=== PATIENT | female | born 1960 | race Caucasian/White ===

== ENCOUNTER 2017-09-19 19:53 | Inpatient (IN) | payer OTHER ==
[~2017-09-19] VITALS: Ht 162.6 cm; Wt 77.1 kg
--- NOTE | ~2017-09-19 | HC ---
[facility] [place] [address] CONSULTATION Name: RAFI GOLDSTEIN Room #: 401-I [facility] IN M.R.#: [id number] Admission: 09/19/17 Attend Phys: Huey Samano MD Discharge: 09/22/17 Date of : 62 Report #: [id number] THIS REPORT FOR: //name// CC: Huey Mooremingaditi RAHMAN PCP DATE OF SERVICE: 09/20/2017 ATTENDING PHYSICIAN: Vitor Lambert MD CONSULTATION REQUESTED BY: Huey Samano MD REASON FOR CONSULTATION: Perirectal abscess. HISTORY OF PRESENT ILLNESS: A 56-year-old white woman admitted through the emergency room with a right perirectal abscess that is spontaneous to drain and she is receiving treatment with vancomycin and Zosyn. The patient recently diagnosed to be diabetic as well. Apparently became unwell a few days ago, visited with urgent care, prescribed Augmentin and Percocet, things got worse and she is evaluated in the emergency room with a draining right perirectal abscess. DRUG ALLERGIES: None listed. MEDICATIONS: The patient is on treatment with vancomycin 1 g IV every 12 hours, Zosyn 3.37 grams IV every 6 hours, p.r.n. fentanyl, glucose and glucagon on as needed basis, regular insulin per sliding scale, and p.r.n. acetaminophen. PAST MEDICAL HISTORY: Essentially negative. The patient some frequent urination up lately, but she was not aware that these were symptoms of possible diabetes. SOCIAL HISTORY: See H and P. FAMILY HISTORY: See H and P. REVIEW OF SYSTEMS: Some perirectal pain. No nausea. No vomiting. No fevers. PHYSICAL EXAMINATION: GENERAL: A well-developed, acutely ill person. VITAL SIGNS: Temperature maximum 101.4, pulse on admission 137, respirations 20, and BP 125/88. HEENMT: Within range. NECK: Supple. No thyromegaly. BREASTS: Deferred. [facility] [address] [place] [address] CONSULTATION Name: RAFI GOLDSTEIN Room #: 401-I [facility] IN [facility].#: [id number] Admission: 09/19/17 Attend Phys: Huey Samano MD Discharge: 09/22/17 Date of : 62 Report #: [id number] LUNGS: Clear. HEART: S1, S2. No gallop or murmur. ABDOMEN: Soft, no masses or megaly. RECTAL: Deferred. PERIRECTAL EXAMINATION: Revealed spontaneously draining large right perirectal abscess, some necrotic tissue, no foul odor surprisingly. NEUROLOGIC: Grossly within normal limit. EXTREMITIES: No clubbing or cyanosis. LABORATORY DATA: Sodium 132, potassium 3.1, CO2 of 30, glucose 627, magnesium 1.5 mg/dL. WBC 16,700, hemoglobin 13.3 g/dL, and platelets of 336,000. Hemoglobin A1c 13.1. Estimated average sugars 329. Urinalysis pending. MICROBIOLOGY DATA: Blood cultures obtained. No abscess culture sent yet. RADIOLOGY EVALUATION: CAT scan of abdomen and pelvis revealed right perirectal abscess measuring 2.3 x 2.4 x 3.2 cm. ASSESSMENT: 1. Right perirectal abscess, possibly polymicrobic in origin. 2. New onset diabetes mellitus. 3. Electrolyte imbalance. SUGGESTIONS: Recommend continue treatment with vancomycin and Zosyn. Add Flagyl 500 mg IV every 8 hours. Proceed with surgical intervention. Consider HBO treatments. Did discuss the patient's situation with general surgeon, Dr. Elio Price who has contacted wound care team. Dr. Samano, thank you for requesting my suggestions in the care of your patient. <ELECTRONICALLY SIGNED> By: Navid Winters MD 09/23/17 0822 1126 1808 Navid Winters MD /nt
--- NOTE | ~2017-09-19 | S ---
[facility] [address] SURGICAL PATH RPT PROCEDURE Name: FANI BATES Room #: 401-I DIS IN M.R.#: [id number] Admission: 09/19/17 Date of : 62 Discharge: 09/22/17 Report #: [id number] Path Case #: [id number] PATHOLOGY REPORT COLLECTION DATE: 09/20/2017 RECEIVED DATE: 09/21/2017 SUBMITTING PHYS: Dr. Elio Price, DO OTHER PHYS: Huey Samano M.D. Dr. Vitor Lambert SPECIMEN(S) RECEIVED: A.Chelsy-rectal mass B.Chelsy-rectal necrotic fat * * * * * * * * * * * * FINAL DIAGNOSIS: A. "Perirectal mass", excision: - Most consistent with leiomyoma showing focal degenerative changes and dystrophic calcifications. - Surrounding tissues with acute and chronic inflammation, necrosis, and granulation tissue. B. "Perirectal necrotic fat", debridement: - Fibroadipose connective tissue with acute and chronic inflammation, necrosis, granulation tissue, fat necrosis and focal fibroblastic proliferation. COMMENT: Properly controlled immunohistochemical stains are performed on specimen A. Block A4 SMA - tumor cells reactive S100 - tumor cells focally reactive CD117 - tumor cells essentially nonreactive CD34 - tumor cells nonreactive. The case is co-reviewed with Dr. Dot Pyle. Clinical correlation is recommended. (CLW:terri; 09/26/2017) PATHOLOGIST: Ximena Bocanegra M.D. REPORT ELECTRONICALLY SIGNED BY: Ximena Bocanegra M.D. DATE/TIME: 09/26/2017 17:01 * * * * * * * * * * * * GROSS PATHOLOGY: A. The specimen is received in formalin labeled "Fani Bates, perirectal mass". Received is a segment of pale cast, firm soft [facility] [address] [place] [address] SURGICAL PATH RPT PROCEDURE Name: FANI BATES Room #: 401-I DIS IN [facility].#: [id number] Admission: 09/19/17 Date of : 62 Discharge: 09/22/17 Report #: [id number] Path Case #: [id number] tissue measuring 3.1 x 2.7 x 2.7 cm in greatest dimensions. The surgical margin is inked. Sectioning reveals pale cast, homogenous cut surfaces throughout. Alternating sections are submitted in cassettes A1 through A6. B. The specimen is received in formalin labeled "Fani Bates, perirectal necrotic fat". Received are multiple segments of yellow-cast to dusky warren-cast lobulated tissue measuring 7.2 x 4.8 x 2.6 cm in aggregate dimensions. Sectioning reveals yellow-cast to bright yellow cut surfaces with a slight amount of fat necrosis present. The specimen is submitted representatively in cassette B1. (CAA; 09/21/2017) CLINICAL HISTORY: Perirectal abscess INITIAL CPT CODE(S): A; 22247, 14530, 86795, 02450, 85966 B; 14372 Professional services performed by [facility] at [facility] [address], [place] [address] Technical services performed by [facility] at [address] [place] [address], [address], [place] [address]. [facility] [address] [place] [address] PHONE: [phone] DIRECTOR: Nemesio Marina M.D. * * * END OF REPORT * * *
--- NOTE | ~2017-09-19 | HC ---
[facility] [place] [address] CONSULTATION Name: RAFI GOLDSTEIN Room #: 401-I [facility] IN ..#: [id number] Admission: 09/19/17 Attend Phys: Huey Samano MD Discharge: 09/22/17 Date of : 62 Report #: [id number] THIS REPORT FOR: //name// CC: Huey BOYCE DATE OF SERVICE: 09/21/2017 CHIEF COMPLAINT: Perirectal/perineal abscess. HISTORY OF PRESENT ILLNESS: This is a 56-year-old female patient who was admitted to the hospital through the Emergency Department. She had a 1-week history of progressive drainage and pain near her right buttocks. She was admitted to the hospital for possible perirectal abscess, she was taken to the operating room immediately and was noted to have a very large abscess cavity with likely a rectal fistula and has been admitted to the hospital for further evaluation and treatment. I have been asked to see her with regard to wound care. PAST MEDICAL HISTORY: Positive for likely history of preexisting diabetes, although this is a new diagnosis on her admission here. She has a history of the perirectal abscess today as well. ALLERGIES: None. SOCIAL HISTORY: Negative for alcohol or tobacco use. She is and accompanied by her . REVIEW OF SYSTEMS: CONSTITUTIONAL: The patient has some mild fever, chills. No recent weight loss. NEUROLOGIC: The patient denies focal weakness, numbness, or tingling. EYES: The patient denies visual changes, redness or drainage. ENT: The patient denies earache, nasal drainage, or sore throat. CARDIOVASCULAR: The patient denies chest pain, palpitations, or diaphoresis. PULMONARY: The patient denies cough or shortness of breath. GASTROINTESTINAL: The patient has had some mild nausea. GENITOURINARY: The patient has had perirectal pain and drainage. Other systems in a 14-point review of systems are negative. PHYSICAL EXAMINATION: VITAL SIGNS: At this time include pulse 109, respiratory rate 22, blood pressure 140/80, temperature 98.6. GENERAL: This is a slightly overweight female patient who appears to be in no distress. [facility] [address] [place] [address] CONSULTATION Name: RAFI GOLDSTEIN Room #: 401-I [facility] IN [facility].#: [id number] Admission: 09/19/17 Attend Phys: Huey Samano MD Discharge: 09/22/17 Date of : 62 Report #: [id number] NECK: Supple. LUNGS: Clear. HEART: Regular. ABDOMEN: Soft. Bowel sounds are present. GENITOURINARY: Perineal region demonstrates a very large perirectal abscess cavity to the right of the midline. There is a small what appears to be a small rectal fistula noted as well. Vaginal structures appear to be intact. I have evaluated the patient's wounds while she was under general anesthesia while undergoing secondary debridement today. LABORATORY DATA: Includes sodium 133, potassium 3.2, chloride 98, CO2 of 28, BUN 7, creatinine 0.7, glucose 263. Lactic acid is 1.8. White blood cell count 19.3, hemoglobin 10.2, hematocrit of 30.2, platelet count 269,000. Differential is a 60 segs, 15 bands, 17 lymphocytes. CLINICAL IMPRESSION: 1. Large ischiorectal abscess. 2. Xtyunkr-ki-jih. 3. Newly diagnosed diabetes mellitus. RECOMMENDATIONS: At this point in time, we will initiate dressing changes with quarter strength Dakin's moist gauze packing at least daily, possibly b.i.d. She may require significant pain medication associated with these dressing changes. There is some consideration that she may require transfer to facility with Colorectal Surgery and Gynecology that is not available here. I do appreciate being asked to see her in consultation. I have answered questions extensively with her and discussed this thoroughly with Dr. Price, her surgeon as well. <ELECTRONICALLY SIGNED> By: Jordon Sloan MD 09/24/17 0834 1726 2256 Jordon Sloan MD /nt
[2017-09-19 19:54] VITALS: BP 125/88
[2017-09-19 20:36] LABS: HEMATOCRIT 39.5 % (37.0-47.0); HEMOGLOBIN 13.3 gm/dL (12.0-15.0); MCHC 33.7 g/dL (28.0-37.0); PLATELET COUNT 336 thou/uL (150-400); RBC 4.94 mil/uL (4.20-5.00); RDW 13.7 % (10.5-14.5); WBC 16.7 thou/uL (4.0-11.0)
[2017-09-19 20:47] LABS: ANISOCYTOSIS 1+
[2017-09-19 21:02] LABS: CALCIUM 10.4 mg/dL (8.5-10.1); POTASSIUM 3.1 mmol/L (3.5-5.1)
[2017-09-20] VITALS (7 sets, daily range): BP systolic 131–181; BP diastolic 61–95
[2017-09-20 00:26] LABS: HEMATOCRIT 36.4 % (37.0-47.0); MCH 26.4 pg (26.0-34.0); MCHC 33.1 g/dL (28.0-37.0); MCV 79.8 fL (80.0-100.0); RBC 4.56 mil/uL (4.20-5.00); RDW 13.4 % (10.5-14.5); WBC 16.5 thou/uL (4.0-11.0)
[2017-09-20 00:37] LABS: CREATININE 0.8 mg/dL (0.6-1.0); MAGNESIUM 1.5 mg/dL (1.8-2.4)
[2017-09-20 00:40] LABS: POTASSIUM 2.9 mmol/L (3.5-5.1)
[2017-09-20 00:41] LABS: CALCIUM 8.4 mg/dL (8.5-10.1)
[2017-09-20 16:07] LABS: GLYCOHEMOGLOBIN (HGB A1C) 13.1 % (4.8-5.6)
[2017-09-21] VITALS (7 sets, daily range): BP systolic 131–166; BP diastolic 62–86
[2017-09-21 03:01] LABS: HEMATOCRIT 30.2 % (37.0-47.0); HEMOGLOBIN 10.2 gm/dL (12.0-15.0); MCH 27.1 pg (26.0-34.0); MCHC 33.7 g/dL (28.0-37.0); MCV 80.4 fL (80.0-100.0); PLATELET COUNT 269 thou/uL (150-400); RBC 3.76 mil/uL (4.20-5.00); RDW 13.7 % (10.5-14.5); WBC 19.3 thou/uL (4.0-11.0)
[2017-09-21 03:12] LABS: CALCIUM 7.4 mg/dL (8.5-10.1); CREATININE 0.7 mg/dL (0.6-1.0); POTASSIUM 3.2 mmol/L (3.5-5.1)
[2017-09-21 04:18] LABS: ABSOLUTE NEUTROPHILS 14.9 thou/uL (1.4-8.2); MYELOCYTES 1 %
[2017-09-22 04:25] VITALS: BP 135/49
[2017-09-22 05:46] LABS: HEMATOCRIT 31.3 % (37.0-47.0); HEMOGLOBIN 10.4 gm/dL (12.0-15.0); MCH 26.6 pg (26.0-34.0); MCHC 33.1 g/dL (28.0-37.0); MCV 80.4 fL (80.0-100.0); RBC 3.89 mil/uL (4.20-5.00); WBC 25.3 thou/uL (4.0-11.0)
[2017-09-22 05:54] LABS: PLATELET COUNT 364 thou/uL (150-400)
[2017-09-22 05:58] LABS: CALCIUM 8.3 mg/dL (8.5-10.1); CREATININE 0.6 mg/dL (0.6-1.0)
[2017-09-22 06:03] LABS: POTASSIUM 2.8 mmol/L (3.5-5.1)
[2017-09-22 08:00] VITALS: BP 139/70
[2017-09-22 08:36] LABS: METAMYELOCYTES 1 %; MYELOCYTES 2 %
[2017-09-22] MEDS ORDERED: DILAUDID1 MG/1 ML IV PUSH (16:29)
[2017-09-22] MEDS ORDERED: NOVOLOG100 UNIT/1 SUBQ (16:31)
[2017-09-22] MEDS ORDERED: ONDANSETRON HCL4 M1 IV PUSH (16:36)
== END 2017-09-22 16:59 | disposition short-term general hospital (02) | DRG 854 ==
LOC: ER 19:53 → 4N 22:27 → EROBS 22:27 → TBA 09-20 12:28 → 4N 09-20 18:48
PROVIDERS: Hospitalist; Nurse Practitioner Family; Physician Assistant; Surgery
PROC: 0KBM0ZZ Excision of Perineum Muscle, Open Approach (ICD-10-PCS; principal; 2017-09-20)
PROC: 0KBM0ZZ Excision of Perineum Muscle, Open Approach (ICD-10-PCS; 2017-09-21)
DX: A41.9 Sepsis, unspecified organism (principal); K61.3 Ischiorectal abscess; E11.65 Type 2 diabetes mellitus with hyperglycemia; E87.8 Other disorders of electrolyte and fluid balance, not elsewhere classified; N73.9 Female pelvic inflammatory disease, unspecified; E87.6 Hypokalemia; E83.42 Hypomagnesemia; E66.9 Obesity, unspecified; Z68.29 Body mass index [BMI] 29.0-29.9, adult
CPT/HCPCS: 10790; 50010; 50101; 50386; 50403; 53078; 53353; 53354; 62110; 62900; 70005

== ENCOUNTER → 2017-11-12 | Outpatient (CLI) | payer OTHER ==
[~2017-11-12] MED LIST: DILAUDID1 MG/1 ML IV PUSH; NOVOLOG100 UNIT/1 SUBQ; ONDANSETRON HCL4 M1 IV PUSH
== END ==
LOC: HYPER 10-26 11:02
DX: T81.89XA Other complications of procedures, not elsewhere classified, initial encounter (principal); E11.69 Type 2 diabetes mellitus with other specified complication; A41.89 Other specified sepsis; K61.0 Anal abscess; F06.4 Anxiety disorder due to known physiological condition; F43.21 Adjustment disorder with depressed mood; Z79.4 Long term (current) use of insulin; I10 Essential (primary) hypertension; F32.9 Major depressive disorder, single episode, unspecified; Y83.8 Other surgical procedures as the cause of abnormal reaction of the patient, or of later complication, without mention of misadventure at the time of the procedure

== ENCOUNTER 2020-03-12 09:37 | Inpatient (IN) | payer BC ==
[~2020-03-12] VITALS: Ht 160 cm; Wt 66.8 kg
--- NOTE | ~2020-03-12 | HC ---
[facility] [place] [address] CONSULTATION Name: RAFI GOLDSTEIN Room #: 456-P ADM IN M.R.#: [id number] Admission: 03/12/20 Attend Phys: Huey Samano MD Discharge: Date of : 62 Report #: [id number] THIS REPORT FOR: cc: Nathan Diggs MD,Erna Lucero MD, MD ~ CC: Huey Diggs DATE OF SERVICE: 03/17/2020 SUBJECTIVE: She is doing well. She had the surgery for resection of large transverse colon tumor. She does not have complaints of fever or chills. OBJECTIVE: VITAL SIGNS: Blood pressure is 109/51, heart rate is 98, temperature 37.0, respirations 19. NECK: Supple. LUNGS: Clear. EXTREMITIES: Lower extremities, no edema. MENTAL STATUS: Alert and oriented x 3. LABORATORY DATA: White count 11.1, hemoglobin 10.3 and platelets 252. CA 98.9. ASSESSMENT AND PLAN: 1. Colon cancer, metastatic to liver. I discussed prognosis and treatment options. I discussed options for chemotherapy. She will see Dr. Pinedo when she is discharged from the hospital for followup chemotherapy. 2. Anemia. Plan to check ferritin level, soluble transferrin receptor level. By: 1439 1501 Erna Hussein MD /nt
[2020-03-12 09:56] VITALS: BP 132/73
[2020-03-12 11:08] LABS: HEMATOCRIT 25.4 % (37.0-47.0); HEMOGLOBIN 7.8 gm/dL (12.0-15.0); MCH 18.6 pg (26.0-34.0); MCHC 30.6 g/dL (28.0-37.0); MCV 60.8 fL (80.0-100.0); PLATELET COUNT 739 thou/uL (150-400); RBC 4.18 mil/uL (4.20-5.00); RDW 17.9 % (10.5-14.5); WBC 21.5 thou/uL (4.0-11.0)
[2020-03-12 11:14] LABS: CALCIUM 10.1 mg/dL (8.5-10.1); CREATININE 1.4 mg/dL (0.6-1.0); POTASSIUM 4.3 mmol/L (3.5-5.1)
[2020-03-12 11:17] LABS: ALBUMIN 2.7 g/dL (3.4-5.0); MAGNESIUM 1.9 mg/dL (1.8-2.4); TOTAL BILIRUBIN 0.5 mg/dL (0.2-1.0); TOTAL PROTEIN 7.5 g/dL (6.4-8.2)
[2020-03-12 12:34] LABS: ABSOLUTE NEUTROPHILS 18.1 thou/uL (1.4-8.2); ANISOCYTOSIS 1+; METAMYELOCYTES 1 %; PLATELET ESTIMATE INCREASED
[2020-03-12 12:35] LABS: HYPOCHROMASIA 1+; MICROCYTES 2+
[2020-03-12 13:36] VITALS: BP 132/73
[2020-03-12 13:51] VITALS: BP 136/66
[2020-03-12 14:22] VITALS: BP 129/84
[2020-03-12 15:50] LABS: URINE BILIRUBIN NEGATIVE (Negative); URINE BLOOD TRACE (Negative); URINE CLARITY CLEAR; URINE COLOR YELLOW; URINE GLUCOSE-RANDOM* NEGATIVE (Negative); URINE KETONES NEGATIVE (Negative); URINE LEUKOCYTES-REFLEX NEGATIVE (Negative); URINE NITRITE-REFLEX NEGATIVE (Negative); URINE PROTEIN (DIPSTICK) NEGATIVE (Negative); URINE SPECIFIC GRAVITY <= 1.005 (1.005-1.035); URINE UROBILINOGEN 0.2 E.U./dl (0.2-1.0)
[2020-03-12 19:34] VITALS: BP 133/54
[2020-03-13] VITALS (8 sets, daily range): BP systolic 112–140; BP diastolic 42–80
[2020-03-13 05:37] LABS: HEMOGLOBIN 6.5 gm/dL (12.0-15.0); MCH 18.5 pg (26.0-34.0)
[2020-03-13 05:39] LABS: HEMATOCRIT 22.1 % (37.0-47.0); MCHC 29.3 g/dL (28.0-37.0); MCV 63.1 fL (80.0-100.0); RBC 3.5 mil/uL (4.20-5.00); RDW 18.1 % (10.5-14.5); WBC 14.9 thou/uL (4.0-11.0)
[2020-03-13 05:44] LABS: CALCIUM 8.6 mg/dL (8.5-10.1); POTASSIUM 3.7 mmol/L (3.5-5.1)
[2020-03-13 05:55] LABS: % SATURATION 6 % (20-39); IRON 11 ug/dL (50-170); TIBC 177 ug/dL (250-450)
[2020-03-13 06:35] LABS: HEMATOCRIT 21.9 % (37.0-47.0)
[2020-03-13 06:37] LABS: HEMOGLOBIN 6.4 gm/dL (12.0-15.0)
[2020-03-13 21:50] LABS: HEMATOCRIT 26.4 % (37.0-47.0); HEMOGLOBIN 8.2 gm/dL (12.0-15.0)
[2020-03-14 04:26] VITALS: BP 144/84
[2020-03-14 05:43] LABS: HEMATOCRIT 27.3 % (37.0-47.0); HEMOGLOBIN 8.4 gm/dL (12.0-15.0); MCH 21.3 pg (26.0-34.0); MCHC 30.7 g/dL (28.0-37.0); RBC 3.94 mil/uL (4.20-5.00); RDW 24.2 % (10.5-14.5)
[2020-03-14 05:49] LABS: MCV 69.3 fL (80.0-100.0)
[2020-03-14 07:00] VITALS: BP 132/71
[2020-03-14 15:25] VITALS: BP 142/83
[2020-03-14 19:02] VITALS: BP 139/66
[2020-03-15 04:15] VITALS: BP 134/64
[2020-03-15 05:10] LABS: HEMATOCRIT 26.5 % (37.0-47.0); HEMOGLOBIN 7.9 gm/dL (12.0-15.0); MCH 20.9 pg (26.0-34.0); MCV 69.6 fL (80.0-100.0); RBC 3.8 mil/uL (4.20-5.00); RDW 25.1 % (10.5-14.5); WBC 14.3 thou/uL (4.0-11.0)
[2020-03-15 08:16] VITALS: BP 128/71
[2020-03-15 15:38] VITALS: BP 143/71
[2020-03-15 19:20] VITALS: BP 141/64
[2020-03-16 04:13] VITALS: BP 165/70
[2020-03-16 05:42] LABS: HEMATOCRIT 25.8 % (37.0-47.0); HEMOGLOBIN 7.9 gm/dL (12.0-15.0); MCH 21.2 pg (26.0-34.0); MCHC 30.7 g/dL (28.0-37.0); MCV 69.1 fL (80.0-100.0); RBC 3.73 mil/uL (4.20-5.00); RDW 25.1 % (10.5-14.5); WBC 12.7 thou/uL (4.0-11.0)
[2020-03-16 06:21] LABS: APTT 33.5 Seconds (24.5-32.8); INR 1.3; PROTIME 13.7 Seconds (9.3-11.4)
[2020-03-16 06:31] LABS: CALCIUM 7.5 mg/dL (8.5-10.1); CREATININE 0.6 mg/dL (0.6-1.0)
[2020-03-16 06:42] LABS: POTASSIUM 2.5 mmol/L (3.5-5.1)
[2020-03-16 07:10] VITALS: BP 157/76
[2020-03-16 14:36] LABS: HEMATOCRIT 21.8 % (37.0-47.0); HEMOGLOBIN 6.6 gm/dL (12.0-15.0); MCHC 30.3 g/dL (28.0-37.0); MCV 69.2 fL (80.0-100.0); RBC 3.15 mil/uL (4.20-5.00)
[2020-03-16 14:37] LABS: WBC 31.3 thou/uL (4.0-11.0)
[2020-03-16 14:50] LABS: APTT 29.6 Seconds (24.5-32.8); FIBRINOGEN 225.7 mg/dL (210-360); INR 1.5
[2020-03-16 14:52] LABS: PROTIME 15.5 Seconds (9.3-11.4)
[2020-03-16 20:03] VITALS: BP 123/56
[2020-03-16 21:00] VITALS: BP 120/64
[2020-03-16 22:00] VITALS: BP 116/62
[2020-03-16 23:00] VITALS: BP 100/36
[2020-03-17] VITALS (15 sets, daily range): BP systolic 109–151; BP diastolic 49–71
[2020-03-17 05:44] LABS: HEMATOCRIT 31.9 % (37.0-47.0); MCHC 32.1 g/dL (28.0-37.0); RBC 4.27 mil/uL (4.20-5.00); RDW 26.5 % (10.5-14.5)
[2020-03-17 05:48] LABS: CALCIUM 7.8 mg/dL (8.5-10.1); CREATININE 0.7 mg/dL (0.6-1.0); MAGNESIUM 1.9 mg/dL (1.8-2.4); POTASSIUM 3.9 mmol/L (3.5-5.1)
[2020-03-17 06:18] LABS: HEMOGLOBIN 10.3 gm/dL (12.0-15.0); MCV 74.8 fL (80.0-100.0); WBC 11.1 thou/uL (4.0-11.0)
--- NOTE | 2020-03-17 14:22 | HC ---
[facility] [place] [address] CONSULTATION Name: RAFI GOLDSTEIN Room #: 251-P ADM IN M.R.#: [id number] Admission: 03/12/20 Attend Phys: Huey Samano MD Discharge: Date of : 62 Report #: [id number] THIS REPORT FOR: cc: Nathan Diggs MD, Elliott L. MD McKittrick, Richard James MD ~ CC: Huey Diggs DATE OF SERVICE: 03/12/2020 REASON FOR CONSULTATION: Transverse colon mass with liver changes consistent with metastasis. 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 She has about a 20-pound weight loss over the last several months. She thought due to depression related to her dogs x 3 and also has had nausea and vomiting recently necessitating her evaluation here. Here, she was found to have a hemoglobin of 7.8 with an MCV of 60.8 down from 80. White count of 21.5, normal liver functions and unfortunately, CAT scan raised a question of a transverse colon mass metastasis to the liver, lung with stranding and adenopathy near the colon mass. The patient denies fevers, chills, has not really had any diarrhea or constipation or abdominal pain. Did have the abdominal discomfort and nausea and vomiting over the last several days. No mouth sores. No headache. No swallowing troubles. No arm or leg swelling. No lymphadenopathy. FAMILY HISTORY: Denies knowledge of cancer in any family members. She has no siblings, no children. SOCIAL HISTORY: Nonsmoker, rare alcohol, no street drugs. 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 PAST MEDICAL HISTORY: Notable for what looks like probable diabetes as well as some past gluteal or buttock fistulous/wounds that do not appear to be an issue at this time. PHYSICAL EXAMINATION: GENERAL: The patient appears her stated age. VITAL SIGNS: Height is 5 feet 3 inches, 160 cm; weight 120 pounds or 54.4 kilograms. Blood pressure 133/54, respirations 18, O2 sat 94%, pulse 109, [facility] [address] [place] [address] CONSULTATION Name: RAFI GOLDSTEIN Room #: [facility] IN [facility].#: [id number] Admission: 03/12/20 Attend Phys: Huey Samano MD Discharge: Date of : 62 Report #: [id number] temperature 98.7. MOOD: She is anxious and teary eyed and concern. NEUROLOGIC: Speech and thought pattern normal. Moving all extremities. HEART: Regular rate. LUNGS: Clear with symmetric expansion, unlabored. LYMPHATICS: No enlarged lymph nodes in the supraclavicular, cervical, axillary or inguinal region. ABDOMEN: Some slight resistance to palpation in the right upper quadrant. EXTREMITIES: Without clubbing, cyanosis or edema. LABORATORY DATA: Notable for sodium of 127, glucose of 284, creatinine 1.4. Total bilirubin normal, AST and ALT normal. Albumin 2.7. White count 21.5, hemoglobin 7.8. Differential includes increased neutrophils. MCV 60.8, down from 80.4 two and half years ago. Platelets 739. There was report of 1 metamyelocyte on her lab work. UA essentially unremarkable. CAT scan as mentioned above. Impression talks about very large transverse colon malignant mass overall, about 16.1 x 9.10 cm occupying most of the transverse segment, extending from the splenic flexure to about 8 cm from the hepatic flexure. Colonic obstruction just past hepatic flexure due to large mass. Extensive surrounding mesenteric and omental direct invasion regional lymph node metastasis. Splenic vein occlusion. May be related to tumor compression. Liver has numerous metastases largest about 2 cm. Solitary gallstone 2.7 cm. ASSESSMENT AND PLAN: 1. A 20-pound weight loss, nausea, vomiting, abnormal CAT scan, most likely colon cancer metastatic to the liver and omentum. Discussed with the patient and family that we need to know whether this is cancer or so, what type. Await general surgeon's opinion. Hopefully, they can do a surgery and get those tissue and help her not be obstructed. Hopefully, they can avoid an ostomy. We will await tissue type to see what type of chemotherapy might be appropriate. We discussed further once more if any information available. 2. Microcytic anemia developed in the last 2-1/2 years, order iron panel, may need to consider IV iron as constipation for oral iron may not be a good choice at this point. May also check B12 and folate. 3. History of diabetes. We will defer management to others. 4. Dehydration with nausea and vomiting, IV fluids and bowel rest. 5. Protein-calorie malnutrition, will defer to others. <ELECTRONICALLY SIGNED> By: Nilay Pinedo MD 03/17/20 1422 43 07 Nilay Pinedo MD /nt
[2020-03-18 06:18] LABS: HEMATOCRIT 31.1 % (37.0-47.0); HEMOGLOBIN 9.9 gm/dL (12.0-15.0); MCHC 31.7 g/dL (28.0-37.0); MCV 75.6 fL (80.0-100.0); RBC 4.11 mil/uL (4.20-5.00); RDW 26.2 % (10.5-14.5); WBC 10.6 thou/uL (4.0-11.0)
[2020-03-18 06:40] LABS: ALBUMIN 1.5 g/dL (3.4-5.0); CREATININE 0.5 mg/dL (0.6-1.0); POTASSIUM 3.7 mmol/L (3.5-5.1)
[2020-03-18 07:38] VITALS: BP 139/66
--- NOTE | 2020-03-18 13:15 | O ---
[facility] [place] [address] OPERATIVE REPORT Name: RAFI GOLDSTEIN Room #: 456-P ADM IN M.R.#: [id number] Admission: 03/12/20 Attend Phys: Huey Samano MD Discharge: Date of : 62 Report #: [id number] THIS REPORT FOR: cc: Nathan Diggs MD, Elliott L. MD Patterson, Jonathan D. MD ~ CC: Huey Diggs DATE OF SERVICE: 03/16/2020 PREOPERATIVE DIAGNOSIS: Transverse colon cancer. POSTOPERATIVE DIAGNOSIS: Transverse colon cancer. OPERATION: Partial colectomy with colostomy. SURGEON: Mateo Blackburn MD ANESTHESIA: General. ESTIMATED BLOOD LOSS: 300 mL. SPECIMEN: Transverse colon and colon mass. DRAINS: None. DESCRIPTION OF PROCEDURE: After informed consent was obtained, the patient was brought to the operating room and placed supine. SCDs were placed and working, preoperative antibiotics were administered, general anesthesia was induced. A Durand catheter was placed prior to prepping. Abdomen was prepped and draped in the usual sterile fashion. Midline incision was made from the xiphoid to the umbilicus. A self-retaining retractor was placed after the fascia was incised. Immediately, I could visualize the very large approximately 20 x 20 cm colon mass in the distal transverse colon. I first began by incising the greater omentum. This allowed entry into the lesser sac. The omentum was incised using the LigaSure device. There was excellent hemostasis. I was able to dissect out proximal to the lesion at approximately 10 cm past the hepatic flexure. This was distal to the hepatic flexure. This was stapled off with a CRISTINA green load stapler. I then worked to ligate the mesentery distally. This was done with the LigaSure device. The middle colic vessels were stick tied with an 0 silk suture. The mass was huge. It was reflected superiorly. There were two areas of small bowel that were adherent to the mass. The small bowel was taken off using [facility] [address] [place] [address] OPERATIVE REPORT Name: RAFI GOLDSTEIN Room #: 456-P [facility] IN ..#: [id number] Admission: 03/12/20 Attend Phys: Huey Samano MD Discharge: Date of : 62 Report #: [id number] Metzenbaum scissors. The mass was then grasped and retracted to the right and I was able to dissect distal to the lesion. This went all the way to the level of the splenic flexure. The distal margin was stapled off with a CRISTINA blue load stapler. The mesentery was then ligated using a combination of the EnSeal device and stick ties for larger vessels. The mass was adherent to the left side of the abdominal wall and this was bluntly peeled off the abdominal wall. The mass was then sent off as a specimen. The spleen was examined and there was no injury to the spleen. There was good hemostasis. The abdomen was copiously irrigated with warm normal saline. A 2 x 2 cm incision was made in the right upper quadrant. The fascia was incised. A Elmora was used to grab the proximal colon staple line and bringing out through this incision. The fascia was closed with a #1 PDS in running fashion. The skin was closed with antonieta. Sterile dressings were applied. A colostomy was then matured using a 4-0 Vicryl in a Krista ostomy type fashion. An ostomy appliance was placed. COMPLICATIONS: None. DISPOSITION: The patient was taken to recovery in satisfactory condition. <ELECTRONICALLY SIGNED> By: Mateo Blackburn MD 03/18/20 1315 1531 1540 Mateo Blackburn MD /nt
[2020-03-18 16:02] VITALS: BP 155/85
[2020-03-18 19:57] VITALS: BP 146/80
[2020-03-19 08:28] VITALS: BP 159/99
[2020-03-19 20:14] VITALS: BP 158/90
[2020-03-20 04:27] VITALS: BP 161/85
[2020-03-20 05:36] LABS: HEMATOCRIT 31.8 % (37.0-47.0); HEMOGLOBIN 10.2 gm/dL (12.0-15.0); MCH 23.9 pg (26.0-34.0); MCV 74.6 fL (80.0-100.0); RBC 4.26 mil/uL (4.20-5.00); RDW 27.3 % (10.5-14.5); WBC 8.7 thou/uL (4.0-11.0)
[2020-03-20 06:21] LABS: ALBUMIN 1.7 g/dL (3.4-5.0); CALCIUM 7.6 mg/dL (8.5-10.1); CREATININE 0.4 mg/dL (0.6-1.0); PHOSPHORUS 2.1 mg/dL (2.5-4.9)
[2020-03-20 06:31] LABS: POTASSIUM 2.5 mmol/L (3.5-5.1)
[2020-03-20 07:54] VITALS: BP 150/90
[2020-03-20 17:30] VITALS: BP 159/86
[2020-03-20 19:35] VITALS: BP 154/97
[2020-03-21 07:55] VITALS: BP 152/77
[2020-03-21] MEDS ORDERED: KLOR-CON 1010 MEQ PO (11:33)
[2020-03-21] MEDS ORDERED: ACETAMINOPHEN325 M1 PO (11:33)
[2020-03-21] MEDS ORDERED: DALMANE15 MG PO (11:33)
[2020-03-21] MEDS ORDERED: COLACE 100 MG100 MG PO (11:33)
[2020-03-21] MEDS ORDERED: PROTONIX40 M2 PO (11:33)
[2020-03-21] MEDS ORDERED: OXYCODONE HCL5 M1 PO (11:33)
[2020-03-21] MEDS ORDERED: MAG-OXIDE400 MG PO (11:33)
[2020-03-21 14:54] VITALS: BP 152/77
--- NOTE | 2020-03-22 15:07 | PATH ---
[facility] [place] [address] PATHOLOGY RPT PROCEDURE Name: FANI BATES Room #: 456-P DIS IN M.R.#: [id number] Admission: 03/12/20 Date of : 62 Discharge: 03/21/20 Report #: [id number] Path Case #: [id number] [facility] Accession Number: [id number] . 01 Material submitted: . colon - TRANSVERSE COLON MASS. Modifiers: transverse . 01 Clinical history: . colon CA . 02 Diagnosis: Large intestine, transverse colon, partial colectomy: - INVASIVE POORLY-DIFFERENTIATED COLONIC ADENOCARCINOMA AND PRESENT AT VISCERAL SEROSAL SURFACE. - EXTENSIVE LYMPHOVASCULAR SPACE INVASION. - MUCOSAL MARGINS NEGATIVE; POSITIVE FOR ADENOCARCINOMA WITHIN LYMPHOVASCULAR SPACES AT CLOSEST MARGIN. - MESENTERIC MARGIN SHOWING CAUTERIZED LYMPH NODE WITH METASTATIC CARCINOMA (COMPLETELY EFFACED). - EXTENSIVE TUMOR DEPOSITS IDENTIFIED THROUGHOUT MESENTERY. - 34 LYMPH NODES SHOWING METASTATIC ADENOCARCINOMA OF 39 SAMPLED (34/39). . Omentum, partial colectomy: - 17.3 cm of omentum showing congestion as well as reactive changes. - Negative for malignancy. . (IUV:mml; 03/19/2020) . . . Surgical Pathology Cancer Case Summary . COLON AND RECTUM: Resection, Including Transanal Disk Excision of Rectal Neoplasms . Procedure ___ Transverse colectomy (partial) . Tumor Site ___ Transverse colon . Tumor Size Greatest dimension (centimeters): 14.0 x 12.5 cm . Macroscopic Tumor Perforation ___ Not identified . Histologic Type [facility] [address] [place] [address] PATHOLOGY RPT PROCEDURE Name: BATESFANI Room #: 456-P [facility] IN [facility].#: [id number] Admission: 03/12/20 Date of : 62 Discharge: 03/21/20 Report #: [id number] Path Case #: [id number] ___ Adenocarcinoma . Histologic Grade ___ G3: Poorly differentiated . Tumor Extension ___ Tumor invades into subserosa, and tumor deposits present at visceral serosal surface along with inflammatory response . Margins ___ Negative for invasive carcinoma, high grade dysplasia or intramucosal carcinoma at mucosal margins ___ Mesenteric margin positive for adenocarcinoma . Treatment Effect ___ No known presurgical therapy . Lymphovascular Invasion ___ Extensive and present . Perineural Invasion ___ Not identified . Tumor Deposits ___ Present, at least 5 . Regional Lymph Nodes . ___ Number of lymph nodes involved: 34 ___ Number of lymph nodes examined: 39 . Pathologic Stage Classification (pTNM, AJCC 8th Edition) . Primary Tumor (pT) ___ pT4a:Tumor invades through the visceral peritoneum (including gross perforation of the bowel through tumor and continuous invasion of tumor through areas of inflammation to the surface of the visceral peritoneum) . Regional Lymph Nodes (pN) ___ pN2b:Seven or more regional lymph nodes are positive . Distant Metastasis (pM) ___ pMX:Unknown . (IUV:mml; 03/19/2020) QLM 03/19/2020 1643 Local . [address] [address] PATHOLOGY RPT PROCEDURE Name: FANI BATES Kim Room #: 456-P DIS IN M.R.#: [id number] Admission: 03/12/20 Date of : 62 Discharge: 03/21/20 Report #: [id number] Path Case #: [id number] Comment: Multiple tumor deposits as well as lymph nodes are identified along the mesenteric fat. Due to complete replacement of the lymph nodes, few of the irregularly-shaped tumor foci within the mesenteric fat are accounted for as tumor deposits instead of lymph nodes. . MSI tumor markers (four immunohistochemical stains) are ordered on block A7 and these will be reported in an addendum to follow. . The extensive lymphovascular invasion as well as the tumor at one of the margins was conveyed to Dr. Toni Stephenson (Dr. Blackburn's partner) who conveyed that the patient has presumed metastatic disease as well as locally invasive cancer. . (IUV:mml; 03/19/2020) . 02 Addendum: . MICROSATELLITE INSTABILITY REPORT (MSI): . Per [facility] Cancer Protocol, mismatch repair (MMR) protein immunohistochemical staining was performed. . Reason for testing:To evaluate for evidence of defective mismatch repair proteins. Method:Immunohistochemical staining for the presence or absence of protein expression of one or more of the following MMR protein markers: MLH1, MSH2, MSH6 and PMS2. Tumor type:Invasive adenocarcinoma . Results: MLH1 -Preserved MSH2 -Preserved MSH6 -Preserved PMS2 -Preserved . Mismatch Repair Status:MMR Proficient (MMR-P) . Interpretation: . (MMR-P) All four MMR proteins are preserved within tumor cells. This suggests the presence of normal DNA mismatch repair function within the tumor and an observable defect in mismatch repair is not identified. The likelihood that this patient has an inherited germline mutation syndrome due to defective mismatch repair is reduced but not totally eliminated. If the patient has a strong personal or family history of HPNCC/Medellin syndrome related cancers (colorectal, endometrial, gastric, ovarian, pancreatic, ureter/renal pelvis, biliary tract, brain, small bowel and Herriman-Marshall syndrome), consider MSI testing by PCR methodology. Suggest [address] [address] PATHOLOGY RPT PROCEDURE Name: TRISTONFANI J Room #: 456-P DIS IN M.R.#: [id number] Admission: 03/12/20 Date of : 62 Discharge: 03/21/20 Report #: [id number] Path Case #: [id number] clinical correlation and follow up. . These test results are designed for screening purposes only and are useful tools in identifying cancer patients that are more likely to have Medellin Syndrome related diagnoses. Tests should be interpreted in the context of clinical findings, family history and laboratory data. Abnormal IHC results for MMR protein expression are not considered diagnostic for Medellin Syndrome. (IUV/db; 03/22/2020) . . Professional services performed by [facility] at [facility], [address], [place] [address]. Technical services performed by [facility] at [address] [place] [address], [address], [place] [address]. QTP/03/22/2020 Addendum Electronically Signed by Dot Pyle MD, Pathologist . 02 Electronically signed: . Dot Pyle MD, Pathologist NPI- [id number] . 01 Gross description: . The specimen is received in formalin, labeled "Fnai Bates, colon mass" and consists of an unoriented segment of large colon measuring 21.5 cm in length and ranging from 4.0-11.8 cm in diameter with attached pericolic fat up to 5.0 cm and omentum (17.3 x 13.0 cm). Both margins are closed with a line of antonieta. There is a large easily identifiable mass in the mid aspect of the colon measuring 14.0 x 12.5 cm. Adjacent the mass are 3 additional possible masses on the serosa measuring between 0.6 cm and 1.0 cm. Opening reveals the mass is ulcerating and necrotic with obliteration of the muscular wall and invasion of the pericolic tissue. The mass abuts the free serosa (inked black) and invades through the opposite radial margin with 5.0 x 3.0 cm area of disruption (inked blue). It is 2.0 cm from one margin and 1.1 cm from the opposite margin. The specimen is held for additional fixation. (SDY; 03/16/2020) . After overnight fixation, the mass clears the mesenteric margin by 1.8 cm however there is a tumor replaced lymph node at the mesenteric margin. The minimal uninvolved mucosa is pink-cast and edematous with no additional masses. Present within the mesocolic tissue are multiple tumor replaced lymph nodes. The omentum reveals no gross lesions. Fan Balancer sections are submitted as follows: . A1: Margin closest tumor A2: Margin furthest tumor A3: Mass to radial margin A4-A5: Mass to free serosa A6: Mesenteric margin (green) to include 2 tumor replaced lymph nodes [address] [address] PATHOLOGY RPT PROCEDURE Name: BATESFANI Room #: 456-P DIS IN ..#: [id number] Admission: 03/12/20 Date of : 62 Discharge: 03/21/20 Report #: [id number] Path Case #: [id number] A7: Additional mass A8: Additional serosal masses A9-A10: Lymph nodes/tumor deposit clusters A11-A13: One serially sectioned uninvolved lymph node A14-A15: Tumor replaced lymph node clusters A16: Omentum (SDY; 03/17/2020) SYU/SYU 03/17/2020 1105 Local . 02 Pathologist provided ICD-10: C18.4, C77.2 . 02 CPT . 805453, 644658, B02270, K28847 Specimen Comment: A courtesy copy of this report has been sent to [phone] Specimen Comment: [phone], Specimen Comment: Report sent to ,DR SALAZAR / DR DAVILA Performed at: [address], [place], [place] [id number] MD William King MD Phone: [phone] Performed at: [address] [id number] MD Dot Pyle MD Phone: [phone]
== END 2020-03-21 16:00 | disposition home or self-care (01) | DRG 329 ==
LOC: ER 09:37 → EROBS 13:16 → 4W 13:16 → ICU 03-16 17:25 → 4W 03-17 14:36
PROVIDERS: Anesthesiology; Internal Medicine Hematology & Oncology; Nurse Practitioner Family; Physician Assistant; Surgery; ADMIT Hospitalist; ATTEND Hospitalist
PROC: 30233N1 Transfusion of Nonautologous Red Blood Cells into Peripheral Vein, Percutaneous Approach (ICD-10-PCS; 2020-03-13)
PROC: 0DBL0ZZ Excision of Transverse Colon, Open Approach (ICD-10-PCS; principal; 2020-03-16)
PROC: 0D1L0Z4 Bypass Transverse Colon to Cutaneous, Open Approach (ICD-10-PCS; principal; 2020-03-16)
DX: C18.4 Malignant neoplasm of transverse colon (principal); E43 Unspecified severe protein-calorie malnutrition; N17.9 Acute kidney failure, unspecified; E87.1 Hypo-osmolality and hyponatremia; K56.609 Unspecified intestinal obstruction, unspecified as to partial versus complete obstruction; C78.7 Secondary malignant neoplasm of liver and intrahepatic bile duct; I82.890 Acute embolism and thrombosis of other specified veins; D62 Acute posthemorrhagic anemia; C78.6 Secondary malignant neoplasm of retroperitoneum and peritoneum; K63.89 Other specified diseases of intestine; E11.9 Type 2 diabetes mellitus without complications; I10 Essential (primary) hypertension; D64.9 Anemia, unspecified; F41.1 Generalized anxiety disorder; E86.0 Dehydration; Z68.26 Body mass index [BMI] 26.0-26.9, adult; Z79.899 Other long term (current) drug therapy; Z79.891 Long term (current) use of opiate analgesic; Z03.818 Encounter for observation for suspected exposure to other biological agents ruled out
CPT/HCPCS: 10040; 10045; 10078; 10196; 50010; 50093; 50101; 50290; 50386; 50445; 50455; 51412; 51708; 51712; 56524; 56525; 56526; 57092; 57103; 62110; 62900; 65020; 65040; 65090; 70005

== ENCOUNTER → 2020-04-13 | Outpatient (CLI) | payer BC ==
[~2020-04-13] MED LIST changes: +ACETAMINOPHEN325 M1 PO; +COLACE 100 MG100 MG PO; +DALMANE15 MG PO; +IRON325 M1 PO; +KLOR-CON 1010 MEQ PO; +MAG-OXIDE400 MG PO; +NORCO 10-325 T1 EACH PO; +OXYCODONE HCL5 M1 PO; +PROTONIX40 M2 PO; +PROTONIX40 M4 PO
== END ==
LOC: LAB 07:44
PROVIDERS: ATTEND Student in an Organized Health Care Education/Training Program
DX: Z01.818 Encounter for other preprocedural examination (principal); Z11.59 Encounter for screening for other viral diseases

== ENCOUNTER 2020-04-16 08:08 | Outpatient (CLI) | payer BC ==
[~2020-04-16] VITALS: Ht 160 cm; Wt 57.2 kg
--- NOTE | ~2020-04-16 | O ---
[facility] [place] [address] OPERATIVE REPORT Name: RAFI GOLDSTEIN Room #: DEP WERO Silva#: [id number] Admission: 04/16/20 Attend Phys: Jonnathan Stephenson MD Discharge: 04/16/20 Date of : 62 Report #: [id number] THIS REPORT FOR: cc: Nathan Diggs MD, Elliott L. MD Patterson, Jonathan D. MD ~ CC: Huey Diggs PREOPERATIVE DIAGNOSIS: Metastatic colon cancer. POSTOPERATIVE DIAGNOSIS: Metastatic colon cancer. OPERATIONS: 1. Ultrasound guidance for Port-A-Cath. 2. Right internal jugular vein Port-A-Cath. 3. Fluoroscopic interpretation for Port-A-Cath. SURGEON: Mateo Blackburn MD ANESTHESIA: General. ESTIMATED BLOOD LOSS: Minimal. SPECIMEN: None. DESCRIPTION OF PROCEDURE: After informed consent was obtained, the patient was brought to the operating room and placed supine. SCDs were placed and working, preoperative antibiotics were administered, general anesthesia was induced. The right neck and chest were prepped and draped in the usual sterile fashion. Ultrasound was brought in the field. The right internal jugular vein was evaluated. It was widely patent. It was normal in size. Right internal jugular vein was cannulated under direct vision. Wire was placed. The wire was in the superior vena cava and this was confirmed with fluoroscopy. A pocket was made in the right chest. The catheter was tunneled from the right chest to the neck site. A dilator with sheath was placed over the wire. Catheter was placed into the sheath as the sheath was peeled away. The catheter was then trimmed to approximately 26 cm. The reservoir was then attached. It flushed and monie easily. A final picture was then confirmed with fluoroscopy. The skin was closed with 4-0 Monocryl in running subcuticular fashion. Incisions were sealed with Dermabond. COMPLICATIONS: None. [facility] [address] [place] [address] OPERATIVE REPORT Name: RAFI GOLDSTEIN Kim Room #: DEP [facility].#: [id number] Admission: 04/16/20 Attend Phys: Jonnathan Stephenson MD Discharge: 04/16/20 Date of : 62 Report #: [id number] DISPOSITION: The patient was taken to recovery in satisfactory condition. By: 1036 [id number] Mateo Blackburn MD /nt
[~2020-04-16 08:08] MED LIST changes: -NORCO 10-325 T1 EACH PO
[2020-04-16 09:45] VITALS: BP 150/81
[2020-04-16] MEDS ORDERED: NORCO 10-325 T1 EACH PO (10:33)
[2020-04-16 10:56] VITALS: BP 150/81
--- NOTE | 2020-04-16 11:02 | NUR ---
OSTOMY CARE NOTE; SPOUSE CALLED EARLIER IN WEEK REQUESTING WOC NURSE SEE PT REGARDING OSTOMY CARE, STATES PERISTOMAL AREA WAS ANGIE ONE DAY, HAS NO HOME HEALTH SEEING PT AND DID NOT WANT HOME HEALTH SERVICES, SPOUSE CHANGES POUCH FOR PT, SEEN TODAY IN RECOVERY ROOM AFTER DENY CATH PLACEMENT, PT AWAKE, SPOUSE PRESENT, STOMA PINK VIABLE BUDDED, SOFT DARK BROWN STOOL NOTED, PERISTOMAL SKIN PINK, INTACT, SHOWN USE OF STOMA POWDER AND NO STING SKIN PREP IF REDDNESS OR IRRITATION OCCURS, BOTH VERY RECEPTIVE TO EDUCATION, REVIEWED DIET, SKIN CARE, OBTAINING SUPPLIES PER INSURANCE NETWORK, PT STILL ENROLLED IN SECURE START PROGRAM W/ ASSIST GETTING SUPPLIES. NEW POUCH MARIANA 2 PIECE SYSTEM CUT FIT APPLIED W/ ADAPT RING UNDER WAFER, EXTRA SUPPLIES GIVEN TO PT UNTIL ABLE TO OBTAIN PER SUPPLIER, GOOD UNDERSTANDING, TO CALL THIS WO NURSE IF ANY FURTHER ISSUES ARISE W/ OSTOMY CARE
== END 2020-04-16 11:35 | disposition home or self-care (01) ==
LOC: TBA 08:08 → OR 08:08 → TBA 08:12 → EDSTATUS 08:35 → OR 09:21 → TBA 11:35 → OR 12:16
PROVIDERS: ATTEND Surgery
DX: Z45.2 Encounter for adjustment and management of vascular access device (principal); C18.9 Malignant neoplasm of colon, unspecified; J45.909 Unspecified asthma, uncomplicated; D64.9 Anemia, unspecified; Z98.890 Other specified postprocedural states; Z79.899 Other long term (current) drug therapy; Z79.891 Long term (current) use of opiate analgesic; Z98.0 Intestinal bypass and anastomosis status; Z88.8 Allergy status to other drugs, medicaments and biological substances
CPT/HCPCS: 50010; 50101; 50386; 50403; 51938; 54118; 56524; 56525; 56526; 62110; 62900; 70005

== ENCOUNTER 2020-09-14 16:49 | Emergency (ER) | payer BC ==
[~2020-09-14] VITALS: Ht 160 cm; Wt 57.1 kg
[~2020-09-14 16:49] MED LIST changes: +NORCO 10-325 T1 EACH PO
[2020-09-14] MEDS ORDERED: AMBIEN 10 MG TA10 MG PO (17:54)
[2020-09-14] MEDS ORDERED: LEXAPRO20 MG PO (17:55)
[2020-09-14] MEDS ORDERED: LORAZEPAM 1 MG T1 MG PO (17:55)
[2020-09-14] MEDS ORDERED: ZOFRAN4 MG PO (17:56)
[2020-09-14 17:57] LABS: ABSOLUTE NEUTROPHILS 11.2 thou/uL (1.4-8.2); BASOPHILS 0.6 % (0.0-2.0); EOSINOPHILS 0.7 % (0.0-3.0); HEMATOCRIT 29.4 % (37.0-47.0); HEMOGLOBIN 9.1 gm/dL (12.0-15.0); LYMPHOCYTES 8.2 % (24.0-44.0); MCV 90.5 fL (80.0-100.0); MONOCYTES 7.7 % (1.0-8.0); PLATELET COUNT 413 thou/uL (150-400); POLYS 82.8 % (36.0-66.0); RBC 3.25 mil/uL (4.20-5.00); RDW 18.7 % (10.5-14.5); WBC 13.5 thou/uL (4.0-11.0)
[2020-09-14 18:03] LABS: ANION GAP 5 mmol/L (7-16); BUN 13 mg/dL (7-18); CALCIUM 8.4 mg/dL (8.5-10.1); CHLORIDE 104 mmol/L (98-107); CO2 26 mmol/L (21-32); CREATININE 0.8 mg/dL (0.6-1.0); GLUCOSE 93 mg/dL (74-106); POTASSIUM 4.1 mmol/L (3.5-5.1); SODIUM 135 mmol/L (136-145)
[2020-09-14 18:14] LABS: ALBUMIN 1.8 g/dL (3.4-5.0); DIRECT BILIRUBIN < 0.1 mg/dL (<0.1-0.2); LIPASE 57 U/L (73-393); SGOT 344 U/L (15-37); SGPT 47 U/L (14-59); TOTAL BILIRUBIN 0.4 mg/dL (0.2-1.0); TOTAL PROTEIN 5.1 g/dL (6.4-8.2); TROPONIN-I <0.06 ng/mL (<0.06)
[2020-09-14 18:44] LABS: ANISOCYTOSIS 2+; BURR CELLS 1+; PLATELET ESTIMATE INCREASED; POIKILOCYTOSIS 2+
[2020-09-14 20:02] LABS: URINE BILIRUBIN NEGATIVE (Negative); URINE BLOOD NEGATIVE (Negative); URINE CLARITY CLEAR; URINE COLOR YELLOW; URINE GLUCOSE-RANDOM* NEGATIVE (Negative); URINE KETONES NEGATIVE (Negative); URINE NITRITE-REFLEX NEGATIVE (Negative); URINE PROTEIN (DIPSTICK) NEGATIVE (Negative); URINE SPECIFIC GRAVITY >= 1.030 (1.005-1.035); URINE UROBILINOGEN 0.2 E.U./dl (0.2-1.0)
[2020-09-14 20:04] LABS: URINE LEUKOCYTES-REFLEX 1+ (Negative)
[2020-09-14 20:19] LABS: BACTERIA-REFLEX 1-9 Few /HPF (None Seen); CASTS None Seen /LPF (None Seen); MUCUS 0-3 Light strn/LPF (None Seen); SQUAMOUS 0-3 Few /LPF (0-3); URIC ACID CRYSTALS >10 Many /LPF (None Seen); URINE RBC 0-2 Rare /HPF (0-2); URINE WBC-REFLEX 6-15 Few /HPF (0-5)
[2020-09-14] MEDS ORDERED: NORCO 10-325 T1 EACH PO (21:20)
[2020-09-14] MEDS ORDERED: COLACE100 MG PO (21:20)
[2020-09-14] MEDS ORDERED: ZOFRAN ODT4 MG PO (21:20)
[2020-09-14 21:31] VITALS: BP 168/69
== END 2020-09-14 21:31 | disposition home or self-care (01) ==
LOC: ER 16:49
PROVIDERS: Emergency Medicine
DX: R18.8 Other ascites (principal); C22.8 Malignant neoplasm of liver, primary, unspecified as to type; C79.89 Secondary malignant neoplasm of other specified sites; Z88.8 Allergy status to other drugs, medicaments and biological substances; Z79.899 Other long term (current) drug therapy; Z85.038 Personal history of other malignant neoplasm of large intestine

== ENCOUNTER 2020-09-17 11:19 | Emergency (ER) | payer BC ==
[~2020-09-17] VITALS: Ht 160 cm; Wt 58.1 kg
[~2020-09-17 11:19] MED LIST changes: +AMBIEN 10 MG TA10 MG PO; +COLACE100 MG PO; +LEXAPRO20 MG PO; +LORAZEPAM 1 MG T1 MG PO; +ZOFRAN ODT4 MG PO; +ZOFRAN4 MG PO
[2020-09-17 12:58] LABS: ABSOLUTE NEUTROPHILS 10.3 thou/uL (1.4-8.2); BASOPHILS 0.3 % (0.0-2.0); EOSINOPHILS 0.2 % (0.0-3.0); HEMATOCRIT 29.4 % (37.0-47.0); HEMOGLOBIN 9.4 gm/dL (12.0-15.0); LYMPHOCYTES 7.8 % (24.0-44.0); MCH 28.4 pg (26.0-34.0); MCHC 31.8 g/dL (28.0-37.0); MCV 89.4 fL (80.0-100.0); MONOCYTES 5.7 % (1.0-8.0); PLATELET COUNT 376 thou/uL (150-400); RBC 3.29 mil/uL (4.20-5.00); RDW 18.5 % (10.5-14.5)
[2020-09-17 13:04] LABS: CALCIUM 8.4 mg/dL (8.5-10.1); CREATININE 0.9 mg/dL (0.6-1.0); POTASSIUM 3.7 mmol/L (3.5-5.1)
[2020-09-17 13:11] LABS: ALBUMIN 1.6 g/dL (3.4-5.0); DIRECT BILIRUBIN 0.2 mg/dL (<0.1-0.2); TOTAL BILIRUBIN 0.4 mg/dL (0.2-1.0); TOTAL PROTEIN 4.8 g/dL (6.4-8.2)
[2020-09-17 13:35] LABS: APTT 26.6 Seconds (24.5-32.8); INR 1.4; PROTIME 14.6 Seconds (9.3-11.4)
[2020-09-17 13:48] LABS: ANISOCYTOSIS 1+
[2020-09-17 17:09] LABS: BF NUCLEATED CELLS 147 /mm3; BF RBC 1040 /mm3
[2020-09-17 17:11] LABS: CLARITY HAZY; COLOR YELLOW; TOTAL VOLUME 60 mL
[2020-09-17 17:41] VITALS: BP 132/84
[2020-09-17 17:53] LABS: SOURCE CHEST
[2020-09-17 17:54] LABS: BF MACROPHAGE 19 %; BF NEUTROPHILS 5 %
[2020-09-18 09:07] LABS: BODY FLUID ALBUMIN 0.7 g/dL (Not Estab.); BODY FLUID AMYLASE 7 U/L (()); BODY FLUID GLUCOSE 98 mg/dL (()); BODY FLUID LDH 855 IU/L (()); BODY FLUID PROTEIN 1.4 g/dL (())
[2020-09-21 16:53] LABS: SOURCE ABDOMINAL
--- NOTE | 2020-09-22 11:07 | PATH ---
[facility] [address] [place] [address] PATHOLOGY RPT PROCEDURE Name: RAFI GOLDSTEIN Room #: DEP ENRICO Silva#: [id number] Admission: 09/17/20 Date of : 62 Discharge: 09/17/20 Report #: [id number] Path Case #: [id number] Note [facility] Accession Number: [id number] TESTS RESULT FLAG UNITS REF RANGE LAB Clinician Provided Cytology Information No. of containers..01 Other (Miscellaneous) Source: ASCITES DIAGNOSIS: 02 ASCITES NEGATIVE FOR MALIGNANT EPITHELIAL CELLS. REACTIVE MESOTHELIAL CELLS ARE PRESENT. THIS INTERPRETATION INCLUDES EVALUATION OF A CELL BLOCK. MILD CHRONIC INFLAMMATION. Pathologist ICD10: 02 R18.8 Signed out by: 02 Dot Pyle MD, Pathologist NPI- [id number] Performed by: Connie Pyle, Clerical Clerk ([facility]) Gross description: 01 15ML, YELLOW, 1TP 1CB /LCS 09/20/2020 0708 Local FLAG LEGEND: L-Low Normal,H-High Normal,LL-Alert Low,HH-Alert High <-Panic Low,>-Panic High,A-Abnormal,AA-Critical Abnormal Performed at: [address] [place] [address] Walter Winkler MD, [address] [address] Dot Pyle MD, Specimen Comment: A courtesy copy of this report has been sent to [phone] Specimen Comment: [phone] Specimen Comment: Report sent to DR CAMPOS / DR DAVILA Specimen Comment: A duplicate report has been generated due to demographic updates. Performed at: [address], [place], [place] [id number] [address] [address] PATHOLOGY RPT PROCEDURE Name: RAFI GOLDSTEIN Room #: DEP ENRICO Silva#: [id number] Admission: 09/17/20 Date of : 62 Discharge: 09/17/20 Report #: [id number] Path Case #: [id number] MD Walter Winkler MD Phone: [phone]
== END 2020-09-17 17:42 | disposition home or self-care (01) ==
LOC: ER 11:19
PROVIDERS: Emergency Medicine
DX: R18.8 Other ascites (principal); R11.10 Vomiting, unspecified; Z88.8 Allergy status to other drugs, medicaments and biological substances; Z79.899 Other long term (current) drug therapy; Z85.038 Personal history of other malignant neoplasm of large intestine